=== PATIENT | male | born 1965 | race Caucasian/White ===

== ENCOUNTER → 2022-03-02 | Day surgery (SDC) | payer BC ==
[~2022-03-02] MED LIST: Ketamine 200 MG/20 ML MDV ONE; Lactated Ringers 1,000 ML IV SCH; Propofol 200 MG/20 ML SDV ONE; fentaNYL 100 MCG/2 ML SDV ONE
[2022-03-02 14:57] VITALS: BP 110/74; PULSE 61
== END ==
LOC: CC.SDS 09:35
PROVIDERS: ATTEND Surgery
DX: Z12.11 Encounter for screening for malignant neoplasm of colon (principal); J45.909 Unspecified asthma, uncomplicated; E03.9 Hypothyroidism, unspecified; K21.9 Gastro-esophageal reflux disease without esophagitis; Z88.2 Allergy status to sulfonamides; Z86.010 Personal history of colon polyps; Z79.899 Other long term (current) drug therapy; Z79.890 Hormone replacement therapy
CPT/HCPCS: J2704; J3010; J7120